=== PATIENT | female | born 1990 | race African-American/Black ===

== ENCOUNTER 2024-01-25 10:46 | Emergency (ER) | payer MEDICAID ==
[~2024-01-25] VITALS: Ht 167.6 cm; Wt 77.0 kg
[2024-01-25 11:02] VITALS: O2SAT 100
[2024-01-25] MEDS: DEXAMETHASONE 10 MG/ML VIAL IM ONE (11:37)
[2024-01-25] MEDS: ALBUTEROL (0.083%) 2.5MG/3ML NEB HHN ONE (12:52)
[2024-01-25] MEDS ORDERED: ALBU2.5V13 NEB (13:08)
[2024-01-25] MEDS ORDERED: PRED5TAB48 MT (13:08)
[2024-01-25 13:09] VITALS: BP 149/50; PULSE 85; RESP 18; TEMP 37.05852; O2SAT 99
== END 2024-01-25 13:13 | disposition home or self-care (01) ==
LOC: ER 10:46
DX: J45.901 Unspecified asthma with (acute) exacerbation (principal)
CPT/HCPCS: 81025; 71046; 94640; 96372; 99283; J1100; Z7610 ×4